=== PATIENT | male | born 1985 | race Caucasian/White ===

== ENCOUNTER 2017-09-30 10:12 | Inpatient (IN) | END 2017-10-03 15:40 | disposition home or self-care (01) | DRG 455 ==

== ENCOUNTER → 2017-10-14 | Outpatient (CLI) | END | disposition home or self-care (01) ==

== ENCOUNTER 2018-08-18 09:49 | Inpatient (IN) | payer BC, OTHER ==
[~2018-08-18] VITALS: Ht 162.6 cm; Wt 53.2 kg
[2018-08-18] VITALS (26 sets, daily range): BP systolic 118–156; BP diastolic 58–98; PULSE 66–106; RESP 10–30; Ht 162.6 cm; Wt 53.2 kg
[~2018-08-18 09:49] MED LIST: CEFAZOLIN 1 GM INJ ONE; CEFAZOLIN 2 GM/50 ML (PMX) 50 ML IVPB ONE; DESFLURANE 15 MIN ONE; GLYCOPYRROLATE 0.4 MG INJ ONE; LACTATED RINGER'S 1,000 ML IV* SCH; METOPROLOL 5 MG INJ ONE; NEOSTIGMINE 3 MG/3 ML SYRINGE ONE; ROCURONIUM 50 MG INJ ONE
[2018-08-18] MEDS ORDERED: FENTAnyl 50 MCG/ML VIAL ONE ×2 (09:57→14:21)
[2018-08-18] MEDS ORDERED: METOCLOPRAMIDE 10 MG INJ ONE (10:02)
[2018-08-18] MEDS ORDERED: MIDAZOLAM 1 MG/ML 2 ML INJ ONE (10:04)
[2018-08-18] MEDS ORDERED: ROCURONIUM 50 MG INJ ONE (10:10)
[2018-08-18] MEDS ORDERED: PROPOFOL 0 ML ONE (10:10)
[2018-08-18] MEDS ORDERED: SUCCINYLCHOLINE CHLORIDE 100 MG/5 ML SYG IV ONE (10:10)
[2018-08-18] MEDS ORDERED: LIDOCAINE 2% (SDV) 5 ML INJ ONE (10:11)
[2018-08-18] MEDS ORDERED: PROPOFOL 20 ML ONE (10:11)
[2018-08-18] MEDS ORDERED: BUPIVACAINE 0.5%/EPI (SDV) 30 ML INJ ONE (11:55)
[2018-08-18] MEDS ORDERED: GELATIN SIZE 100 SPONGE ONE (11:55)
[2018-08-18] MEDS ORDERED: SURGIFOAM POWDER 1 GM KIT ONE (11:55)
[2018-08-18] MEDS ORDERED: THROMBIN 5000 UNIT VIAL ONE (11:55)
[2018-08-18] MEDS ORDERED: POLYMYXIN/BACITRACIN 1L IRRIG ONE (11:56)
[2018-08-18] MEDS ORDERED: MEPERIDINE 25 MG INJ IV PRN (12:00)
[2018-08-18] MEDS ORDERED: LABETALOL HCL 20MG INJ IV PRN (12:00)
[2018-08-18] MEDS ORDERED: ONDANSETRON 4 MG INJ IV PRN ×2 (12:00→15:00)
[2018-08-18] MEDS ORDERED: IPRATROPIUM (NEB) 0.5 MG/2.5 ML AMP HHN PRN (12:00)
[2018-08-18] MEDS ORDERED: LEVALBUTEROL (NEB) 1.25 MG/0.5 ML AMP HHN PRN (12:00)
[2018-08-18] MEDS ORDERED: HYDROmorphONE 1 MG/5 ML IV SYRINGE IV PRN ×2 (12:00)
[2018-08-18] MEDS ORDERED: hydrALAzine 20 MG INJ IV PRN (12:00)
[2018-08-18] MEDS ORDERED: DIPHENHYDRAMINE 50 MG INJ IV PRN ×2 (12:00→15:00)
[2018-08-18] MEDS ORDERED: FENTAnyl 50 MCG/ML VIAL IV PRN ×2 (12:00)
--- NOTE | 2018-08-18 12:00 | PREAC ---
Date/Time of Note Date/Time of Note DATE: 08/18/18 TIME: 11:59 Anesthesia Eval and Record Evaluation Time Pre-Procedure Interview DATE: 08/18/18 TIME: 11:59 Age 32 Sex male NPO: 8 hrs Preoperative diagnosis lumbar spinal stenosis Planned procedure lumbar spinal fusion/decompression Past Medical History Past Medical History: Includes Neuro: Peripheral neuropathy Surgery & Anesthesia Issues No known issue Meds Anticoagulation: No Beta Vahid within 24 hr: No Reason Beta Vahid not given: Pt. not on B-Vahid No Active Prescriptions or Reported Meds Current Medications Lactated Ringer's 1,000 ml @ 0 mls/hr Q0M IV* ; Start 08/18/18 at 09:00; Stop 08/18/18 at 16:00 Meds reviewed: Yes Allergies Coded Allergies: No Known Allergy (Unverified , 08/18/18) Allergies Reviewed: Yes Labs/Studies Labs Reviewed: Reviewed by anesthesiologist test: N/A Pre-procedure Exam Last vitals Vital Signs Date Temp Pulse Resp B/P (MAP) Pulse Ox O2 O2 Flow FiO2 Time Delivery Rate 08/18/18 97.8 79 18 118/77 99 Room Air 10:40 (91) Airway: Adequate mouth opening, Adequate thyromental dist Mallampati: Mallampati III Teeth: Normal Lung: Normal Heart: Normal ASA Physical Status ASA physical status: 2 Emergency: None Planned Anesthetic General/MAC: ETT Planned Pain Management Parenteral pain med, Other neuraxial med, Local by surgeon Pre-operative Attestations Prior to commencing anesthesia and surgery, the patient was re-evaluated, there was verification of: *The patient's identity *The results of appropriate recent lab work and preoperative vital signs *The above evaluation not changing prior to induction *Anesthetic plan, risk benefits, alternative and complications discussed with patient/family; questions answered; patient/family understands, accepts and wishes to proceed. LANEY WESTBROOK MD Aug 18, 2018 12:00
[2018-08-18] MEDS ORDERED: CA CHLORIDE 10% 10 ML SYRINGE ONE (12:56)
[2018-08-18] MEDS ORDERED: HEPARIN 1000 UNITS/ML 10 ML INJ ONE (12:56)
[2018-08-18] MEDS ORDERED: BUPIVACAINE 0.25% (MPF) 30 ML INJ ONE (14:20)
--- NOTE | 2018-08-18 14:56 | HPN ---
Date/Time of Note Date/Time of Note DATE: 08/18/18 TIME: 14:56 Interval H&P Admission Note Pt. seen H&P reviewed: No system changes JAK JAEGER PA-C Aug 18, 2018 14:56
--- NOTE | 2018-08-18 14:58 | SIPON ---
Date/Time of Note Date/Time of Note DATE: 08/18/18 TIME: 14:55 Operative Report Preoperative Diagnosis lumbar stenosis Postoperative Diagnosis lumbar stenosis Operation/Procedure Performed lumbar decompression Surgeon see signature line reading assistant saira Anesthesia: general Estimated blood loss: 100 - 150 ml's Transfusion Required none Specimen sp process Grafts/Implants none Complications none JERONIMO PHELAN MD Aug 18, 2018 14:58
[2018-08-18] MEDS ORDERED: BISACODYL 10 MG SUPP PR PRN (15:00)
[2018-08-18] MEDS ORDERED: HYDROCODONE/APAP (10/325) TAB PO PRN ×2 (15:00)
[2018-08-18] MEDS ORDERED: AL HYDROX/MG HYDROX/SIMETH 30 ML CUP PO PRN (15:00)
[2018-08-18] MEDS ORDERED: NALOXONE (0.4 MG/ML) INJ IV PRN (15:00)
[2018-08-18] MEDS ORDERED: ACETAMINOPHEN 325 MG TAB PO PRN (15:00)
[2018-08-18] MEDS ORDERED: CYCLOBENZAPRINE 10 MG TAB PO PRN (15:00)
[2018-08-18] MEDS ORDERED: CEPASTAT LOZENGE MT PRN (15:00)
[2018-08-18] MEDS ORDERED: HYDROmorphONE 0.5 MG/0.5 ML SYG IV PRN (15:00)
--- NOTE | 2018-08-18 15:12 | NUR ---
PACU: Received patient in pacu via bed s/p L5_s1 redo spinal decompression , drowsy, moving too much, vss HOB @ semi bone position breathing with ease lower back dressing dry & intact with hemovac patent, scd placed on both legs, ice pack placed over dressing, phoned & given her update, set up DECORATOR STORE machine, will continue to monitor.
--- NOTE | 2018-08-18 15:21 | NUR ---
PT NOTE , ORDER ACKNOWLEDGED CHART REVIEW COMPLETED , PATIENT JUST ARRIVED TO PACU , PER REPORT PATIENT IS NOT READY FOR PT EVALUATION , PAIN STILL HAS NOT BEEN MANAGED YET , PLAN TO FOLLOW UP IN AM
[2018-08-18] MEDS: HYDROmorphONE 1 MG/5 ML IV SYRINGE IV PRN ×2 (15:35→15:46)
[2018-08-18] MEDS: CEFAZOLIN 1 GM/50 ML (PMX) 50 ML IVPB SCH ×2 (15:36→22:04)
[2018-08-18] MEDS: HYDROmorphONE 0.2 MG/ML PCA IV SCH (15:37)
--- NOTE | 2018-08-18 15:38 | OPR ---
DATE OF OPERATION: 08/18/2018 PREOPERATIVE DIAGNOSIS: L5 to S1 isthmic spondylolisthesis with stenosis and radiculopathy. POSTOPERATIVE DIAGNOSIS: L5 to S1 isthmic spondylolisthesis with stenosis and radiculopathy. PROCEDURES: 1. Central decompressive laminectomy at L5 to S1, decompression of L5 and S1 nerve roots bilaterally . 2. Use of operative microscope. 3. Use of C-arm fluoroscopy interpretation without radiologist present. 4. Intraoperative neuromonitoring. PRIMARY SURGEON: Edmond Coates MD WASHERETTE MACHINE OPERATOR: Dali Schroeder PA-C NEED FOR FISHERIES MANAGER: During this spinal surgical procedure, my registered medical assistant was used to retract and protect the spinal nerves and dural sac. My registered medical assistant also employed the suction catheters to ev acuate blood from the surgical field to improve visualization of the neural structures. The assistan t was medically necessary to facilitate the completion of the surgery in a safe and expeditious [facility] r. [facility] regulations, as well as hospital bylaws, preclude the use of non-licensed [facility] care personnel, such as operating room technicians, to perform these functions. FINDINGS: Neuromonitoring at the start of the case revealed left L5 amplitude down 20%, right L5 pk n 50%, bilateral S1 down 40%. At the end of the case, nerve signals returned to normal. The patient had a randolph fragment at L5 to S1 with bilateral chronic pars fractures with stenosis at L5 to S1. Th ere is quite a bit of vascularization around both nerve roots bilaterally. ESTIMATED BLOOD LOSS: 100 mL. DRAINS: None. SPECIMENS: L5 to S1 spinous process. COMPLICATIONS OF PROCEDURES: None. ANESTHESIOLOGIST: Dr. Olguin. TYPE OF ANESTHESIA: General. INDICATIONS FOR PROCEDURE: This is a 32-year-old gentleman who had previously undergone fusion at th e L5 to S1 level. He had residual stenosis and radiculopathy; therefore, I recommended that he under go the above procedure. Preoperatively, we discussed risks, benefits and alternatives. He understoo d and wished to proceed. DESCRIPTION OF PROCEDURE IN DETAIL: The patient was identified in the preoperative holding area, gi en Ancef antibiotic, taken to the operating room, where he was successfully placed under general anes thesia. Neuromonitoring were placed, sequential devices were applied. Garcia catheter was inserted. Intraoperative neuromonitoring was performed by Dr. Ramirez from 11:14 until 15:00 to include SSEP , MEP and EMG performed by [place] acquired by [employer]. The patient was placed on the operating table in prone position over a Jean Paul frame. All bony prominences were well padded. The back was then prepped and draped in usual sterile fashion. Using the sterile fluoroscope, I identified the incision site. I a nesthetized skin, subcutaneous tissue with Marcaine and epinephrine. Incision was then made over the L5 to S1 level. Incision was taken down to dorsal fascia, which was incised with Bovie cautery. I then subperiosteally dissected the L5 and S1 lamina. I placed a Kerrison at the L5 and took lateral film to confirm the correct levels. Next, I performed a central decompressive laminectomy at the L5 to S1 level, removing the randolph fragment in pieces. I removed the pars fracture. I removed the infer ior facet of L5. I exposed the S1 facet and performed the medial facetectomy. Microscope was arthur t in. I then removed the ligamentum flavum. I removed the pars complex. At this point, I was able to visualize the L5 and S1 nerve roots. I was able to decompress the L5 and S1 nerve roots to allevi ate the stenosis. There is quite a bit of vascularization tethering the nerve roots and I performed a neurolysis under the microscope in order to free of the L5 and S1 nerve roots bilaterally. Once th is was done, all nerve signals returned to normal. Hemostasis was achieved with bipolar cautery and Surgifoam. Valsalva was performed and there was no leak of CSF. The wound was then irrigated. Epid ural catheter was passed through which I injected 100 mcg of fentanyl with 2 mL of Marcaine 0.25% pre servative-free and the catheter was pulled. PPP and thrombin was injected over the dura for hemostat ic purposes. A deep subfascial drain was then placed and deep fascia was closed in #1 Stratafix sutu re. Microscope was taken off the field. A 4-0 Monocryl closure was then performed. Dermabond and s terile dressings then applied. The patient was awakened from anesthesia and taken to the recovery ro om in stable condition. Lap, sponge and instrument counts were correct x2. There were no apparent c omplications during the procedure. The patient will be admitted to the orthopedic hoang for routine postoperative care to include physica l therapy, pain control, neurovascular checks and antibiotics. Dictated By: EDMOND COATES MD BB/BRIANNA Conf#: [id number] DID#: [id number] CC: PREMA ODOM MD;*EndCC*
--- NOTE | 2018-08-18 16:12 | PN ---
Date/Time of Note Date/Time of Note DATE: 08/18/18 TIME: 16:08 Assessment/Plan VTE Prophylaxis SCD applied (from Nsg): Yes Pharmacological prophylaxis: NA/contraindicated Pharm contraindication: surgical contra Lines/Catheters IV Catheter Type (from Nrsg): Peripheral IV Urinary Cath still in place: Yes Reason Cath still needed: urinary retention Assessment/Plan Results 24hrs Laboratory Tests Test 08/18/18 15:10 Urine Color STRAW Urine Clarity CLEAR Urine pH 7.0 Urine Specific [place] 1.008 Urine Ketones NEGATIVE Urine Nitrite NEGATIVE Urine Bilirubin NEGATIVE Urine Urobilinogen NEGATIVE Urine Leukocyte Esterase NEGATIVE Urine Hemoglobin NEGATIVE Urine Glucose NEGATIVE Urine Total Protein NEGATIVE Subjective 24 Hr Interval Summary Free Text/Dictation gumaro is a 32 yr old man seen in recovery post decompressive low lumbar surgery with root compression. amplitudes returned to nl per op report. he is still sleepy and sl agitated. vs ok, moves all four. lungs clear, abd soft, momin in place see my dictated h and p on chart. no significant medical problems, no meds. will follow during post op course. Musculoskeletal: back pain Exam/Review of Systems Vital Signs Vitals Vital Signs Date Temp Pulse Resp B/P (MAP) Pulse Ox O2 O2 Flow FiO2 Time Delivery Rate 08/18/18 98.3 15:14 08/18/18 79 18 118/77 99 Room Air 10:40 (91) Medications Medications Current Medications Hydromorphone HCl (Dilaudid) 0.2 mg PACU PRN IV MILD PAIN LEVEL 1-3 Last administered on 08/18/18at 15:52; Admin Dose 0.2 MG; Start 08/18/18 at 12:00; S top 08/18/18 at 17:00 Hydromorphone HCl (Dilaudid) 0.4 mg PACU PRN IV MODERATE PAIN LEVEL 4-6 Last administered on 08/18/18at 15:46; Admin Dose 0.4 MG; Start 08/18/18 at 12:00; Stop 08/18/18 at 17:00 Hydromorphone HCl (Dilaudid) 0.6 mg PACU PRN IV SEVERE PAIN LEVEL 7-10; Start 08/18/18 at 12:00; Stop 08/18/18 at 17:00 Fentanyl (Sublimaze) 25 mcg PACU ORDER PRN IV MILD PAIN LEVEL 1-3; Start 08/18/18 at 12:00; Stop 08/18/18 at 17:00 Fentanyl (Sublimaze) 50 mcg PACU ORDER PRN IV MODERATE PAIN LEVEL 4-6; Start at 12:00; Stop 08/18/18 at 17:00 Ondansetron HCl (Zofran Inj) 4 mg PACU ORDER PRN IV NAUSEA AND/OR VOMITING Last administered on 08/18/18at 15:35; Admin Dose 4 MG; Start 08/18/18 at 12:00; Stop 08/18/18 at 17:00 Labetalol HCl (Labetalol) 5 mg PACU ORDER PRN IV ELEVATED BLOOD PRESSURE; Start 08/18/18 at 12:00; Stop 08/18/18 at 17:00 Hydralazine HCl (Apresoline) 5 mg PACU ORDER PRN IV ELEVATED BLOOD PRESSURE; Start 08/18/18 at 12:00; Stop 08/18/18 at 17:00 Levalbuterol (Xopenex Neb) 1.25 mg PACU ORDER PRN HHN WHEEZING; Start 08/18/18 at 12:00; Stop 08/18/18 at 17:00 Ipratropium [place] (Atrovent 0.02% (Neb)) 0.5 mg PACU ORDER PRN HHN WHEEZING; Start 08/18/18 at 12:00; Stop 08/18/18 at 17:00 Meperidine HCl (Demerol) 25 mg PACU ORDER PRN IV POST OPERATIVE SHIVERING Last administered on 08/18/18at 16:00; Admin Dose 25 MG; Start 08/18/18 at 12:00; Stop 08/18/18 at 17:00 Diphenhydramine HCl (Benadryl) 25 mg PACU ORDER PRN IV PRURITUS Last administered on 08/18/18at 15:51; Admin Dose 25 MG; Start 08/18/18 at 12:00; Stop 08/18/18 at 17:00 Potassium Chloride/Dextrose/ Sod Cl 1,000 ml @ 100 mls/hr Q10H IV ; Start 08/18/18 at 14:56 Acetaminophen/ Hydrocodone Bitart ([place] (10/325)) 1 tab Q4H PRN PO PAIN LEVEL 1-5; Start 08/18/18 at 15:00 Acetaminophen/ Hydrocodone Bitart ([place] (10/325)) 2 tab Q4H PRN PO PAIN LEVEL 6-10; Start 08/18/18 at 15:00 Hydromorphone HCl (Dilaudid) 0.2 mg Q1H PRN IV BREAKTHROUGH PAIN; Start 08/18/18 at 15:00 Cefazolin Sodium 50 ml @ 100 mls/hr Q8H IVPB Last administered on 08/18/18at 15:36; Admin Dose 100 MLS/HR; Start 08/18/18 at 15:00; Stop 08/19/18 at 07:29 Ondansetron HCl (Zofran Inj) 4 mg Q6H PRN IV NAUSEA AND/OR VOMITING; Start 08/18/18 at 15:00 Bisacodyl (Dulcolax Supp) 10 mg DAILY PRN [place] CONSTIPATION; Start 08/18/18 at 15:00 Docusate Sodium (Colace) 100 mg BID PO ; Start 08/18/18 at 21:00 Pantoprazole (Protonix Iv) 40 mg DAILY@06 IV ; Start 08/19/18 at 06:00 Al Hydrox/Mg Hydrox/Simethicone (Mag-Al Plus) 15 ml Q6H PRN PO const; Start 08/18/18 at 15:00 Acetaminophen (Tylenol Tab) 650 mg Q4H PRN PO fever; Start 08/18/18 at 15:00 Cyclobenzaprine HCl (Flexeril) 10 mg TID PRN PO MUSCLE SPASMS; Start 08/18/18 a t 15:00 Phenol (Cepastat Lozenge) 1 lozenge PRN PRN MT SORE THROAT; Start 08/18/18 at 15:00 Diphenhydramine HCl (Benadryl) 25 mg Q6H PRN IV ITCHING; Start 08/18/18 at 15:00 Naloxone HCl (Narcan) 0.2 mg Q2M PRN IV rr; Start 08/18/18 at 15:00 Hydromorphone HCl (Dilaudid SIX COLOR PRESS OPERATOR) SIX COLOR PRESS OPERATOR to be started in PACU Q4PCA IV Last administered on 08/18/18at 15:37; Admin Dose 6 MG; Start 08/18/18 at 15:00 Miscellaneous Information 1. Hold SIX COLOR PRESS OPERATOR at 1,400... SIX COLOR PRESS OPERATOR IV ; Start 08/18/18 at 15:00 PREMA ODOM MD Aug 18, 2018 16:12
--- NOTE | 2018-08-18 17:00 | NUR ---
PACU: Transferred patient to room 425 via bed AAOx4 vss HOB @ semi bone position breathing with ease lower back dressing dry & intact with hemovac patent, scd placed on both legs, ice pack placed over dressing, momin catheter patient & draining, given pain medications for comfort pain tolerable, Report given to CLEMENCIA Galvan
--- NOTE | 2018-08-18 17:05 | NUR ---
ADMIT TO 4 WEST RECEIVED PT FROM PACU. PT A/A/OX4, WITH FIANCE AT BEDSIDE. ORIENTED TO ROOM, USE OF CALL LIGHT, UNIT ROUTINE AND POC. ALL QUESTIONS ANSWERED, THEY BOTH VERBALIZED UNDERSTANDING. WILL CONTINUE MONITORING.
[2018-08-18] MEDS: D5W-0.45 NACL + KCL 20 MEQ 1,000 ML IV SCH (17:38)
--- NOTE | 2018-08-18 18:30 | NUR ---
END OF SHIFT NOTE PT RESTING IN BED. TOLERATING DIET WELL. VSS, NO CHANGE IN CONDITION AT THIS TIME. SAFETY MAINTAINED THROUGHOUT SHIFT. BED IN LOW POSITION, CALL LIGHT IN REACH. HOURLY ROUNDS PERFORMED. WILL CONTINUE MONITORING AND WILL ENDORSE POC TO KIMMIE KHANNA.
[2018-08-18] MEDS: DOCUSATE SODIUM 100 MG CAP PO SCH (22:04)
[2018-08-19] MEDS: D5W-0.45 NACL + KCL 20 MEQ 1,000 ML IV SCH ×4 (00:56→20:41)
[2018-08-19 02:10] VITALS: BP 116/59; PULSE 75; RESP 18
[2018-08-19] MEDS: HYDROmorphONE 0.2 MG/ML PCA IV SCH ×2 (02:17→09:19)
[2018-08-19] MEDS: CEFAZOLIN 1 GM/50 ML (PMX) 50 ML IVPB SCH (05:53)
[2018-08-19] MEDS ORDERED: PANTOPRAZOLE 40 MG INJ IV SCH (06:00)
--- NOTE | 2018-08-19 06:44 | NUR ---
NRSG NOTE: PT IN BED, ASLEEP, EASILY AROUSED. AOX4. NO ACUTE DISTRESS NOTED. NO SOB. VSS. PAIN MGMT EFFECTIVE VIA DILAUDID. WALKED PT WITH FWW, BRACE, TOLERATED. PT RESTING COMFORTABLY.
[2018-08-19 07:17] VITALS: BP 113/56; PULSE 65; RESP 18
[2018-08-19] MEDS: DOCUSATE SODIUM 100 MG CAP PO SCH ×2 (09:14→20:41)
--- NOTE | 2018-08-19 09:20 | PN ---
Date/Time of Note Date/Time of Note DATE: 08/19/18 TIME: 09:19 Assessment/Plan Lines/Catheters IV Catheter Type (from Nrsg): Peripheral IV Garcia in Place (from Nrsg): Yes Assessment/Plan Assessment/Plan Postop day 1 status post lumbar decompression. Continue with pain management. Anticipate removal of drain tomorrow. Subjective 24 Hr Interval Summary Complains of back pain but notes improved leg pain Exam/Review of Systems Vital Signs Vitals Vital Signs Date Temp Pulse Resp B/P (MAP) Pulse Ox O2 O2 Flow FiO2 Time Delivery Rate 08/19/18 98.4 65 18 113/56 98 Room Air 07:17 (75) 08/18/18 2.0 18:45 Intake and Output 08/18/18 08/18/18 08/19/18 1515:00 23:00 07:00 IntakeIntake Total 1850 ml 1220 ml OutputOutput Total 0 ml 900 ml 50 ml BalanceBalance 0 ml 950 ml 1170 ml Exam Free Text/Dictation Good distal strength Results Result Diagram: 08/19/18 0426 08/19/18 0426 JERONIMO PHELAN MD Aug 19, 2018 09:20
--- NOTE | 2018-08-19 10:20 | NUR ---
PT Evaluation Therapy day number 1 Evaluation Start Time 10:20 Evaluation End Time 11:00 Evaluation Total Time 40 min Subjective Current complaint of pain Pain Scale NUMERIC Pain Intensity 6 (0-10) Patient Stated Goal for Pain Relief 0 (0-10) Pain Level Comment improved with pain meds Pre Treatment Vital Signs Stable Yes Supine to Sit Supervised Transfer Sit to Stand Ability Supervised Bed Mobility Sit to Supine Supervised Bed Transfer Ability Supervised Chair Transfer Ability Supervised Gait Assist Levels Supervised Assistive Devices Front Wheel Walker Ambulation Distance 120 feet Static Sitting Balance Good Dynamic Sitting Balance Good Standing Static Balance Fair plus Dynamic Standing Balance Fair plus Safety Judgement Good Activity Tolerance Fair Equipment Present Drains IV pump COLLOID MILL OPERATOR Additional Equipment Present LSO Post Treatment Pain Intensity 6 0-10 Quality Indicators Dizziness Total Minutes 40 Total Units 3 PT Technical Record Comment 32 yo male s/p L5-S1 lumbar decompression on 08/18/18. PMHx: pt reports lumbar surgery 1 year prior Precautions: lumbosacral corset PRN, back precautions PLOF: Pt reports living in a 1 story home with his fiance, available to assist at night, no stairs to enter. I with no AD, community ambulator, has a FWW and LSO from prior sx. S: Pt semi-bone in bed, is agreeable to PT. RN cleared pt for activity. Pt reports moderate dizziness, nausea. O: PT evaluation complete, pt assisted back to bed with call nearby, bed alarm, tray at bedside. Pt donned and doffed LSO Sarai, LSO used OOB. Pt educated on spinal precautions and instructed on log roll technique. BP sitting EOB: 129/69. Pt ambulated 120' supervised with FWW, with mild UE support, reciprocal steps, good balance and coordination, but c/o worsening dizziness and was returned to bed. No reports of numbness or tingling. RN informed of pt response to activity and RN requested lumbosacral corset. A: Pt demonstrates fair mobility, strength, coordination and balance throughout, however is limited by moderate dizziness. Pt would benefit from continued skilled inpatient PT to improve tolerance for activity and reinforcement of spinal precautions. P: QID until goals met. Trial LS corset next treatment. Recommendation: No DME needed at this time as pt has a FWW. Anticipate discharge to home and pt can benefit from HHPT/OPPT when medically cleared by
--- NOTE | 2018-08-19 10:38 | PN ---
Date/Time of Note Date/Time of Note DATE: 08/19/18 TIME: 10:36 Assessment/Plan VTE Prophylaxis Risk score (from Ns)>0 risk: 4 SCD applied (from Ns): Yes Pharmacological prophylaxis: NA/contraindicated Pharm contraindication: surgical contra Lines/Catheters IV [facility] ([facility]): Peripheral IV Urinary Cath still in place: Yes Reason Cath still needed: urinary retention Assessment/Plan Result Diagram: 08/19/18 0426 08/19/18 0426 Results 24hrs Laboratory Tests Test 08/18/18 15:10 08/19/18 04:26 08/19/18 07:50 Urine Color STRAW Urine Clarity CLEAR Urine pH 7.0 Urine Specific [place] 1.008 Urine Ketones NEGATIVE Urine Nitrite NEGATIVE Urine Bilirubin NEGATIVE Urine Urobilinogen NEGATIVE Urine Leukocyte Esterase NEGATIVE Urine Hemoglobin NEGATIVE Urine Glucose NEGATIVE Urine Total Protein NEGATIVE White Blood Count 13.5 #H Red Blood Count 4.34 L Hemoglobin 13.1 L Hematocrit 38.5 L Mean Corpuscular Volume 88.7 Mean Corpuscular Hemoglobin 30.2 Mean Corpuscular 34.0 Hemoglobin Concent Red Cell Distribution Width 12.5 Platelet Count 224 Mean Platelet Volume 10.7 H Immature Granulocytes % 0.400 Neutrophils % 85.1 H Lymphocytes % 7.8 L Monocytes % 6.6 Eosinophils % 0.0 Basophils % 0.1 Nucleated Red Blood Cells % 0.0 Immature Granulocytes # 0.050 H Neutrophils # 11.5 H Lymphocytes # 1.1 Monocytes # 0.9 Eosinophils # 0.0 Basophils # 0.0 Nucleated Red Blood Cells # 0.0 Sodium Level 140 Potassium Level 4.8 Chloride Level 102 Carbon Dioxide Level 28 Anion Gap 10 Blood Urea Nitrogen 11 Creatinine 0.85 Est Glomerular Filtrat > 60 Rate mL/min Glucose Level 150 Calcium Level 9.3 Magnesium Level 1.8 Lab Scanned Report REFERENCE LAB Subjective 24 Hr Interval Summary Free Text/Dictation post op day one, alert, fluent some back discomfort. says legs feel well. starting p.t. this am.momin in, to come out later today lungs clear, good toe extension bilaterally doing well Musculoskeletal: back pain Exam/Review of Systems Vital Signs Vitals Vital Signs Date Temp Pulse Resp B/P (MAP) Pulse Ox O2 O2 Flow FiO2 Time Delivery Rate 08/19/18 98.4 65 18 113/56 98 Room Air 07:17 (75) 08/18/18 2.0 18:45 Intake and Output 08/18/18 08/18/18 08/19/18 1515:00 23:00 07:00 IntakeIntake Total 1850 ml 1220 ml OutputOutput Total 0 ml 900 ml 50 ml BalanceBalance 0 ml 950 ml 1170 ml Medications Medications Current Medications Potassium Chloride/Dextrose/ Sod Cl 1,000 ml @ 100 mls/hr Q10H IV Last administered on 08/19/18at 02:18; Admin Dose 100 MLS/HR; Start 08/18/18 at 14:56 Acetaminophen/ Hydrocodone Bitart ([place] (10325)) 1 tab Q4H PRN PO PAIN LEVEL 1-5; Start 08/18/18 at 15:00 Acetaminophen/ Hydrocodone Bitart ([place] (10/325)) 2 tab Q4H PRN PO PAIN LEVEL 6-10; Start 08/18/18 at 15:00 Hydromorphone HCl (Dilaudid) 0.2 mg Q1H PRN IV BREAKTHROUGH PAIN Last administered on 08/19/18at 04:23; Admin Dose 0.2 MG; Start 08/18/18 at 15:00 Ondansetron HCl (Zofran Inj) 4 mg Q6H PRN IV NAUSEA AND/OR VOMITING; Start 08/18/18 at 15:00 Bisacodyl (Dulcolax Supp) 10 mg DAILY PRN [place] CONSTIPATION; Start 08/18/18 at 15:00 Docusate Sodium (Colace) 100 mg BID PO Last administered on 08/19/18at 09:14; Admin Dose 100 MG; Start 08/18/18 at 21:00 Pantoprazole (Protonix Iv) 40 mg DAILY@06 IV Last administered on 08/19/18at 05:53; Admin Dose 40 MG; Start 08/19/18 at 06:00 Al Hydrox/Mg Hydrox/Simethicone (Mag-Al Plus) 15 ml Q6H PRN PO const; Start 08/18/18 at 15:00 Acetaminophen (Tylenol Tab) 650 mg Q4H PRN PO fever; Start 08/18/18 at 15:00 Cyclobenzaprine HCl (Flexeril) 10 mg TID PRN PO MUSCLE SPASMS; Start 08/18/18 at 15:00 Phenol (Cepastat Lozenge) 1 lozenge PRN PRN MT SORE THROAT; Start 08/18/18 at 15:00 Diphenhydramine HCl (Benadryl) 25 mg Q6H PRN IV ITCHING; Start 08/18/18 at 15:0 0 Naloxone HCl (Narcan) 0.2 mg Q2M PRN IV rr; Start 08/18/18 at 15:00 Hydromorphone HCl (Dilaudid NEW CAR GET READY MECHANIC) NEW CAR GET READY MECHANIC to be started in PACU Q4PCA IV Last administered on 08/19/18at 09:19; Admin Dose 6 MG; Start 08/18/18 at 15:00 Miscellaneous Information 1. Hold NEW CAR GET READY MECHANIC at 1,400... NEW CAR GET READY MECHANIC IV ; Start 08/18/18 at 15:00 PREMA ODOM MD Aug 19, 2018 10:38
--- NOTE | 2018-08-19 12:16 | NUR ---
[facility] NOTES: PT IS A 32 YRS OLD MALE WITH ADMITTING DX OF L5-S1 FUSION WITH RESIDUAL STENOSIS. PRIOR TO THE ADMISSION, PT LIVED WITH HIS SIG OTHER, NAI [phone]. PRIOR TO THE ADMISSION, PT USED A FWW AT HOME AND ABLE TO AMBULATE TO HIS BATHROOM. PT INDICATED THAT HE WILL NOT NEED A BSC AT HOME. THERE ARE NO OTHER DC PLANNING NEEDS FOR THIS PT. PER THE BEDSIDE NURSE, PT MAY BE DC HOME TOMORROW. ADDRESS AND TELEPHONE #S ARE VERIFIED. JOHN ROJAS CM [id number] Addendum: 08/19/18 at 1218 by JOHN PARDO CM Amended: Links added.
--- NOTE | 2018-08-19 12:30 | NUR ---
PT Note Therapy day number 1 Subjective Current complaint of pain Pain Scale NUMERIC Pain Intensity 5 (0-10) Patient Stated Goal for Pain Relief 0 (0-10) Pain Level Comment VACUUM PAN OPERATOR used prior to treat Transfer Training Start Time 12:30 Supine to Sit Supervised Transfer Sit to Stand Ability Supervised Bed Mobility Sit to Supine Supervised Bed Transfer Ability Supervised Chair Transfer Ability Supervised Additional Mobility Comments with FWW Transfer Training End Time 12:40 Total Transfer Training Time 10 min (8-127) Gait Training Start Time 12:40 Gait Assist Levels Supervised Assistive Devices Front Wheel Walker Ambulation Distance 200 feet Gait Training End Time 12:55 Total Gait Training Treatment Time 15 min (8-127) Static Sitting Balance Good Dynamic Sitting Balance Good Standing Static Balance Fair plus Dynamic Standing Balance Fair plus Additional Balance Assessments Comments with FWW Safety Judgement Good Activity Tolerance Fair Equipment Present Drains Garcia Catheter IV pump VACUUM PAN OPERATOR Post Treatment Pain Intensity 5 0-10 Quality Indicators Dizziness Total Treament Time 25 min (8-127) Total Minutes 25 Total Units 2 PT Technical Record Comment S: Pt sleeping in bed, easily aroused and agreeable to PT. Pt's fiance at bedside. RN cleared pt for activity. O: Pt was seen for bed mobility, transfers, gait training. LS corset applied EOB for all OOB activities with modA for donning. Pt c/o dizziness mild-moderate initially, ambulated 200' supervised with FWW, then at the end of treatment c/o mod-severe dizziness and was assisted back to bed with call light nearby, bed alarm on, all needs met. Reviewed spinal precautions and pt demonstrated log roll technique. Per pt's fiance, there are 2-3 small steps to enter the home. A: Pt demonstrates improving tolerance for activity but continues to be limited by dizziness. Balance, coordination, strength are sufficient for all activity, except when limited by dizziness. P: Continue POC. Clarify stairs and do stair training if appropriate.
--- NOTE | 2018-08-19 14:10 | NUR ---
PT Note Therapy day number 1 Pain Intensity 5 (0-10) Patient Stated Goal for Pain Relief 0 (0-10) Pain Level Comment had not used LIBRARY AIDE since this am Transfer Training Start Time 14:10 Supine to Sit Modified Independent Transfer Sit to Stand Ability Modified Independent Bed Mobility Sit to Supine Supervised Bed Transfer Ability Stand by Assist Chair Transfer Ability Stand by Assist Transfer Training End Time 14:20 Total Transfer Training Time 10 min (8-127) Gait Training Start Time 14:20 Gait Assist Levels Supervised Assistive Devices Front Wheel Walker Ambulation Distance 300 feet Gait Training End Time 14:35 Total Gait Training Treatment Time 15 min (8-127) Static Sitting Balance Good Dynamic Sitting Balance Good Standing Static Balance Fair plus Dynamic Standing Balance Fair plus Additional Balance Assessments Comments with FWW Safety Judgement Good Activity Tolerance Fair Equipment Present A pump Drains IV pump LIBRARY AIDE Post Treatment Pain Intensity 6 0-10 Total Treament Time 25 min (8-127) Total Minutes 25 Total Units 2 PT Technical Record Comment S: Pt sitting in bed, is agreeable to PT. RN cleared pt for activity. O: Pt was seen for bed mobility, transfers, gait training. Pt donned/doffed LS corset Sarai. Reported very mild dizziness and pain at start of treatment, but more alert and awake than at previous treatments. Pt ambulated 300' supervised with FWW, reported improving numbness and tingling in B feet, but c/o sudden dizziness and pain with stand-sit upon returning to bed. Pain and dizziness improved when pt back to bed sidelying, with pt visibly more fatigued. Pt returned to bed with call light nearby, all needs met. RN informed of pt response to activity. Pt confirms that he does not need to use stairs to enter his home, no stair training needed. A: Pt demonstrated improved dizziness, pain, and tolerance to activity, until the very end of treatment, perhaps due to transfer technique to fatigue. P: Continue POC. Practice sit-stand transfers at start of treatment.
--- NOTE | 2018-08-19 15:20 | NUR ---
PT NOTE Therapy day number 1 Subjective Current complaint of pain Pain Scale NUMERIC Pain Intensity 7 (0-10) Patient Stated Goal for Pain Relief 0 (0-10) Pain Level Comment BACK PAIN, USED MANAGER OF TRAINING AND DEVELOPMENT POST TX Transfer Training Start Time 15:20 Supine to Sit Supervised Transfer Sit to Stand Ability Supervised Bed Mobility Sit to Supine Supervised Additional Mobility Comments Transfers w/AD Transfer Training End Time 15:35 Total Transfer Training Time 15 min (8-127) Gait Training Start Time 15:35 Gait Assist Levels Supervised Assistive Devices Front Wheel Walker Ambulation Distance 220 feet Additional Gait Comments reciprocal gait, steady pace, no LOB/buckling Gait Training End Time 16:00 Total Gait Training Treatment Time 25 min (8-127) Static Sitting Balance Good Dynamic Sitting Balance Good Standing Static Balance Good Dynamic Standing Balance Fair plus Additional Balance Assessments Comments FWW Safety Judgement Good Activity Tolerance Fair Equipment Present A pump Drains IV pump MANAGER OF TRAINING AND DEVELOPMENT Post Treatment Pain Intensity 7 0-10 Quality Indicators Dizziness Variance Documentation SEE BELOW AND PT NOTE Total Treament Time 40 min (8-127) Total Minutes 40 Total Units 3 PT Technical Record Comment PT NOTE S: Pt stated, "I am in pain, but feeling better." Agreeable for PT and cleared per CLEMENCIA Park. O: Received pt in semi-fowlers, alert w/pt's fiance present in room. Bed mobility log roll method using over head trapeze and BR Supervised. Pt donned/doffed LS corset at EOB Independently. Applied gait belt. STS to FWW Supervised. Assisted pt to toilet per pt's request Independent. Gait training performed w/FWW 220' Supervised. Noted reciprocal gait, steady pace, no LOB/buckling, (B) shoulder elevation, mild flexed posture, and mild BUE pressure on AD. Pt required 1 standing rest break due to increased pain. Assisted pt back to room BTB. Positioned pt for comfort, call light/phone within reach, bed alarmed, and all needs met. CLEMENCIA Park informed of pt's status. A: Fair tolerance to tx. Pt showed no signs of distress or SOB during or after tx. Pt reported mild dizziness once returning back to room and reported dizziness subsided once BTB. Will initiate stair training on next PT session due to pt reporting having 2-3 steps to enter home. P: Continue POC and progress as tolerated.
[2018-08-19 15:54] VITALS: BP 110/58; PULSE 80; RESP 18
--- NOTE | 2018-08-19 18:34 | NUR ---
END OF SHIFT NOTE Pain managed with dilaudid audit intern. Back incision with gauze and tegaderm dry and intact with hemovac in place with 50ml output. Tolerated regular diet well. Urinal at bedside and calls when needs assistance. Ambulated around unit with physical therapist and tolerated well. Bed in lowest position and call light within reach.
[2018-08-19 20:07] VITALS: BP 114/59; PULSE 102; RESP 18
[2018-08-20 01:48] VITALS: BP 126/69; PULSE 110; RESP 18
[2018-08-20] MEDS: HYDROmorphONE 0.2 MG/ML PCA IV SCH (02:42)
[2018-08-20] MEDS ORDERED: PANTOPRAZOLE (EC) 40 MG TAB PO SCH (06:00)
--- NOTE | 2018-08-20 06:25 | NUR ---
NRSG NOTE: PT IN BED, AWAKE, AOX4. NO ACUTE DISTRESS NOTED. NO SOB. PAIN MGMT EFFECTIVE VIA DILAUDID MACHINE PECAN GATHERER. THIS AM 0600 PATIENT WOKE UP DISORIENTED FOR A FEW SECONDS. PATIENT WAS REORIENTED X4 QUICKLY. NEUROCHECK DONE, INTACT. DENIES HEADACHE, DENIES N/V, NO FURTHER CONFUSION OBSERVED. NOTED LOW GRADE TEMPERATURE OF 100, TYLENOL PO ADMINISTERED. BED ALARM ON. HEMOVAC 30ML OUTPUT DURING SHIFT, INCISION SITE WITH SMALL DRAINAGE CIRCLED. PATIENT IS STABLE, RESTING COMFORTABLY AT THIS TIME WITH AT BEDSIDE.
[2018-08-20 07:33] VITALS: BP 106/55; PULSE 97; RESP 20
--- NOTE | 2018-08-20 08:42 | PN ---
Date/Time of Note Date/Time of Note DATE: 08/20/18 TIME: 08:39 Assessment/Plan VTE Prophylaxis Risk score (from Nsg)>0 risk: 4 SCD applied (from Ns): Yes Pharmacological prophylaxis: NA/contraindicated Pharm contraindication: surgical contra Lines/Catheters IV Catheter Type (from Nrsg): Peripheral IV Urinary Cath still in place: No Assessment/Plan Result Diagram: 08/19/1842508/19/18425 Subjective 24 Hr Interval Summary Free Text/Dictation gumaro is sitting up and eating this am tho said he was a little mixed up when he woke up, fine now. nospecific complaints, feels legs are stronger. aledrt, lungs clear, hr ok, no edema, still sl ehl weakness, tho better. no nodes, no cough. temp to 100. momin out, voiding ok. to check wbc. drain still in. Neurologic: focal-weakness Exam/Review of Systems Vital Signs Vitals Vital Signs Date Temp Pulse Resp B/P (MAP) Pulse Ox O2 O2 Flow FiO2 Time Delivery Rate 08/20/18 98.9 97 20 106/55 97 Nasal 2.0 07:33 (72) Cannula Intake and Output 08/19/18 08/19/18 08/20/18 1515:00 23:00 07:00 IntakeIntake Total 2350 ml 240 ml OutputOutput Total 800 ml 850 ml 30 ml BalanceBalance -800 ml 1500 ml 210 ml Medications Medications Current Medications Potassium Chloride/Dextrose/ Sod Cl 1,000 ml @ 100 mls/hr Q10H IV Last administered on 08/19/18at 20:41; Admin Dose 100 MLS/HR; Start 08/18/18 at 14:56 Acetaminophen/ Hydrocodone Bitart ([place] (10/325)) 1 tab Q4H PRN PO PAIN LEVEL 1-5; Start 08/18/18 at 15:00 Acetaminophen/ Hydrocodone Bitart ([place] (10/325)) 2 tab Q4H PRN PO PAIN LEVEL 6-10; Start 08/18/18 at 15:00 Hydromorphone HCl (Dilaudid) 0.2 mg Q1H PRN IV BREAKTHROUGH PAIN Last administered on 08/19/18at 04:23; Admin Dose 0.2 MG; Start 08/18/18 at 15:00 Ondansetron HCl (Zofran Inj) 4 mg Q6H PRN IV NAUSEA AND/OR VOMITING; Start 08/18/18 at 15:00 Bisacodyl (Dulcolax Supp) 10 mg DAILY PRN [place] CONSTIPATION; Start 08/18/18 at 15:00 Docusate Sodium (Colace) 100 mg BID PO Last administered on 08/19/18at 20:41; Admin Dose 100 MG; Start 08/18/18 at 21:00 Al Hydrox/Mg Hydrox/Simethicone (Mag-Al Plus) 15 ml Q6H PRN PO const; Start 08/18/18 at 15:00 Acetaminophen (Tylenol Tab) 650 mg Q4H PRN PO fever Last administered on 08/20/18at 06:08; Admin Dose 650 MG; Start 08/18/18 at 15:00 Cyclobenzaprine HCl (Flexeril) 10 mg TID PRN PO MUSCLE SPASMS; Start 08/18/18 at 15:00 Phenol (Cepastat Lozenge) 1 lozenge PRN PRN [place] SORE THROAT; Start 08/18/18 at 15:00 Diphenhydramine HCl (Benadryl) 25 mg Q6H PRN IV ITCHING Last administered on 08/20/18at 02:35; Admin Dose 25 MG; Start 08/18/18 at 15:00 Naloxone HCl (Narcan) 0.2 mg Q2M PRN IV rr; Start 08/18/18 at 15:00 Hydromorphone HCl (Dilaudid AWARD MACHINE OPERATOR) AWARD MACHINE OPERATOR to be started in PACU Q4PCA IV Last administered on 08/20/18at 02:42; Admin Dose 6 MG; Start 08/18/18 at 15:00 Miscellaneous Information 1. Hold AWARD MACHINE OPERATOR at 1,400... AWARD MACHINE OPERATOR IV ; Start 08/18/18 at 15:00 Pantoprazole (Protonix Tab) 40 mg DAILY@06 PO Last administered on 08/20/18at 05:58; Admin Dose 40 MG; Start 08/20/18 at 06:00 PREMA ODOM MD Aug 20, 2018 08:42
--- NOTE | 2018-08-20 08:57 | NUR ---
PT NOTE Therapy day number 2 Subjective Current complaint of pain Pain Scale NUMERIC Pain Intensity 3 (0-10) Patient Stated Goal for Pain Relief 0 (0-10) Pain Level Comment back pain Transfer Training Start Time 08:57 Supine to Sit Modified Independent Transfer Sit to Stand Ability Supervised Bed Mobility Sit to Supine Modified Independent Additional Mobility Comments Transfers w/AD Transfer Training End Time 09:11 Total Transfer Training Time 14 min (8-127) Gait Training Start Time 09:11 Gait Assist Levels Supervised Assistive Devices Front Wheel Walker Ambulation Distance 240 feet Additional Gait Comments reciprocal gait, steady pace, no LOB/buckling Gait Training End Time 09:35 Total Gait Training Treatment Time 24 min (8-127) Static Sitting Balance Good Dynamic Sitting Balance Good Standing Static Balance Good Dynamic Standing Balance Fair plus Additional Balance Assessments Comments FWW Safety Judgement Good Activity Tolerance Good Equipment Present A pump Drains IV pump TROMBONE SLIDE ASSEMBLER Post Treatment Pain Intensity 5 0-10 Quality Indicators Dizziness Variance Documentation SEE BELOW AND PT NOTE Total Treament Time 38 min (8-127) Total Minutes 38 Total Units 3 PT Technical Record Comment PT NOTE S: Pt stated, "My pain is ok, like a 3." Agreeable for PT and cleared per CLEMENCIA Leong. O: Received pt in semi-fowlers, alert. Bed mobility log roll method using BR Jennifer. Pt donned/doffed LS corset at EOB Independently. Applied gait belt. STS to FWW Supervised/Jennifer. Gait training performed w/FWW 240' Supervised. Noted reciprocal gait, steady pace, no LOB/buckling, (B) shoulder elevation, mild flexed posture, and mild BUE pressure on AD. Pt required 1 brief standing rest break due to increased pain. Stair training performed 4 steps x 1 using (B) rails, step to pattern w/VCs for sequence Supervised, fair demonstration. Assisted pt back to room BTB. Positioned pt for comfort, call light/phone within reach, bed alarmed, and all needs met. CLEMENCIA Leong informed of pt's status. A: Good tolerance to tx. Pt showed no signs of distress or SOB during or after tx. Pt reported improvement with less dizziness once returning back to room compared to yesterday. Bed mobility, transfers, and gait distance improved compared to previous tx. P: Continue POC and progress as tolerated.
[2018-08-20] MEDS: DOCUSATE SODIUM 100 MG CAP PO SCH (09:00)
--- NOTE | 2018-08-20 10:38 | PAC ---
Date/Time of Note Date/Time of Note DATE: 08/20/18 TIME: 10:38 Post-Anesthesia Notes Post-Anesthesia Note Last documented vital signs Vital Signs Date Temp Pulse Resp B/P (MAP) Pulse Ox O2 O2 Flow FiO2 Time Delivery Rate 08/20/18 18 09:00 08/20/18 98.9 97 106/55 97 Nasal 2.0 07:33 (72) Cannula Activity: WNL Respiratory function: WNL Cardiovascular function: WNL Mental status: Baseline Pain reasonably controlled: Yes Hydration appropriate: Yes Nausea/Vomiting absent: Yes LANEY WESTBROOK MD Aug 20, 2018 10:38
--- NOTE | 2018-08-20 11:27 | NUR ---
PT NOTE Therapy day number 2 Subjective Current complaint of pain Pain Scale NUMERIC Pain Intensity 2 (0-10) Patient Stated Goal for Pain Relief 0 (0-10) Pain Level Comment BACK PAIN Transfer Training Start Time 11:27 Supine to Sit Independent Transfer Sit to Stand Ability Modified Independent Bed Mobility Sit to Supine Independent Additional Mobility Comments STS w/no AD Transfer Training End Time 11:41 Total Transfer Training Time 14 min (8-127) Gait Training Start Time 11:41 Gait Assist Levels Supervised Assistive Devices Front Wheel Walker Ambulation Distance 250 feet Additional Gait Comments reciprocal gait, steady pace, no LOB/buckling Gait Training End Time 12:07 Total Gait Training Treatment Time 26 min (8-127) Stair Climbing Ability Modified Independent Number of Stairs 4 Stairs Additional Stairs Assist Comments 4 steps x 1 using (B) rails, reciprocal pattern Static Sitting Balance Good Dynamic Sitting Balance Good Standing Static Balance Good Dynamic Standing Balance Good Additional Balance Assessments Comments FWW Safety Judgement Good Activity Tolerance Good Equipment Present A pump IV pump JUICE WEIGHER Post Treatment Pain Intensity 6 0-10 Quality Indicators Dizziness Variance Documentation SEE BELOW AND PT NOTE Total Treament Time 40 min (8-127) Total Minutes 40 Total Units 3 PT Technical Record Comment PT NOTE S: Pt stated, "I am ready to walk. I just woke up from taking a nap." Agreeable for PT and cleared per CLEMENCIA Leong. O: Received pt in semi-fowlers, alert. Bed mobility log roll method Independent. Pt donned/doffed LS corset at EOB Independently. Applied gait belt. STS w/no AD to FWW Jennifer. Gait training performed w/FWW 250' Supervised/Jennifer. Noted reciprocal gait, steady pace, no LOB/buckling, (B) shoulder elevation, mild flexed posture, and min BUE pressure on AD. Pt required 2 brief standing rest breaks due to increased pain. Stair training performed 4 steps x 1 using (B) rails, reciprocal pattern Jennifer, good demonstration. Pt reported dizziness after stairs training, therefore required 1 sitting rest break for ~2 minutes until dizziness subsided. Assisted pt back to room BTB. Positioned pt for comfort, call light/phone within reach, bed alarmed, and all needs met. CLEMENCIA Leong informed of pt's status. A: Good tolerance to tx. Pt showed no signs of distress or SOB during or after tx. Bed mobility, transfers, stair training, and gait distance improved compared to previous tx. Pt is clear to ambulate w/nursing staff in hallway using FWW, gait belt, and LS corset when OOB, RN notified. P: Continue POC and progress as tolerated.
--- NOTE | 2018-08-20 12:54 | DS ---
Date/Time of Note Date/Time of Note DATE: 08/20/18 TIME: 12:54 Discharge Summary Admission/Discharge Info Admit Date/Time Aug 18, 2018 at 09:49 Discharge Date/Time August 20 Patient Condition: Good Procedures Lumbar decompression Hospital Course Patient was admitted to the orthopedic [facility] after undergoing the above procedure. By August 20 the patient was deemed stable for discharge with follow-up arranged with the undersigned Home Meds No Active Prescriptions or Reported Meds Primary Care Provider Not On Staff Doctor Pending Labs Laboratory Tests Test 08/20/18 09:12 White Blood Count 10.4 10^3/ul (4.8-10.8) Red Blood Count 4.25 10^6/ul (4.70-6.10) Hemoglobin 12.7 g/dl (14.0-18.0) Hematocrit 38.6 % (42.0-52.0) Mean Corpuscular Volume 90.8 fl (82.0-101.0) Mean Corpuscular Hemoglobin 29.9 pg (29.0-33.0) Mean Corpuscular Hemoglobin Concent 32.9 g/dl (32.0-37.0) Red Cell Distribution Width 12.4 % (11.5-14.5) Platelet Count 219 10^3/UL (140-415) Mean Platelet Volume 10.1 fl (7.4-10.4) Immature Granulocytes % 0.200 % (0.001-0.429) Neutrophils % 62.0 % (39.0-77.0) Lymphocytes % 29.5 % (15.0-51.0) Monocytes % 7.2 % (0.0-11.0) Eosinophils % 0.8 % (0.0-7.0) Basophils % 0.3 % (0.0-2.0) Nucleated Red Blood Cells % 0.0 /100WBC (0.0-0.0) Immature Granulocytes # 0.020 10^3/ul (0.0-0.031) Neutrophils # 6.4 10^3/ul (1.6-7.5) Lymphocytes # 3.1 10^3/ul (0.8-2.9) Monocytes # 0.8 10^3/ul (0.3-0.9) Eosinophils # 0.1 10^3/ul (0.0-0.5) Basophils # 0.0 10^3/ul (0.0-0.1) Nucleated Red Blood Cells # 0.0 10^3/ul (0.0-0.0) JERONIMO PHELAN MD Aug 20, 2018 12:54
[2018-08-20 14:40] VITALS: BP 126/63; PULSE 106; RESP 20
--- NOTE | 2018-08-20 15:45 | NUR ---
DISCHARGE NOTE: Pt stable for discharge. Drain and PAD EXTRACTION TENDER d/c by Pain managed with PO Quentin. IV removed, tip intact, site asymptomatic. Pt given discharge information, verbalized understanding. Pt taken down to front lobby in wheelchair by Nancy LAGUERRE.
== END 2018-08-20 15:45 | disposition home or self-care (01) | DRG 517 ==
LOC: REC 09:49 → MS1 17:04
PROVIDERS: ADMIT Specialist; ATTEND Specialist
PROC: 01NB0ZZ Release Lumbar Nerve, Open Approach (ICD-10-PCS; principal; 2018-08-18 12:00)
DX: M43.17 Spondylolisthesis, lumbosacral region (principal); M48.07 Spinal stenosis, lumbosacral region; M54.17 Radiculopathy, lumbosacral region
CPT/HCPCS: 72100; 80048; 81003; 83735; 85025; 86999; 87086; 88304; 88311; 97116; 97161; 97530; C9113; J0690; J1170; J1200; J1644; J2175; J2250; J2405; J2710; J2765; J3010; J3480; J7120